=== PATIENT | male | born 1955 | race Caucasian/White ===

== ENCOUNTER → 2020-08-25 | Outpatient (CLI) | payer BC ==
--- NOTE | 2020-08-25 10:30 | Diagnostic Imaging Report ---
PROCEDURE: MRI left upper extremity without contrast. TECHNIQUE: Multiplanar, multisequence non contrast-enhanced MRI of the left upper extremity was accomplished. INDICATION: Left shoulder pain There are no prior exams available for comparison. On the T2 fat-saturated coronal series there is a tiny area of altered signal along the anterior aspect of the insertion of the rotator cuff (series 9 image 12). This finding is suspicious for a minute rim rent tear. There are also other areas of altered signal within the anterior insertion of the rotator cuff. These are questionable for partial tears. These findings could also be related to tendinosis. The supraspinatus muscle itself is not retracted or bunched. There is hypertrophy of the acromioclavicular joint and there is mild narrowing of the outlet for the supraspinous muscle. The biceps tendon is intact. The midportion of the subscapularis tendon is somewhat indistinct and there is mild edema in the soft tissues in this area. The possibility of a small partial tear of the subscapularis tendon should be considered. The labrum is thinned posteriorly but appears to be intact for the most part. There is no abnormal signal arising from the osseous structures to suggest bone edema or fracture. IMPRESSION: 1. There is a questionable minute rim rent tear involving the anterior most insertion of the rotator cuff. There also appears to be a small partial tears or tendinitis of the rotator cuff in this area. However the supraspinous muscle is not retracted or bunched. 2. There is hypertrophy of the acromioclavicular joint and this does result in mild narrowing of the outlet for the supraspinous muscle. 3. The slightly indistinct appearance of the midportion of the subscapularis tendon and the soft tissue edema in this area does raise a question of a small partial tear of the tendon. 3. There is no evidence for a labral tear. 4.There is no acute bony abnormality identified. Dictated by: Dictated on workstation # [id number]
== END ==
LOC: RAD 08:31
PROVIDERS: ATTEND Family Medicine
DX: M89.312 Hypertrophy of bone, left shoulder (principal); M25.512 Pain in left shoulder
CPT/HCPCS: 73221